=== PATIENT | female | born 1945 | race Caucasian/White ===

== ENCOUNTER 2023-12-22 13:48 | Emergency (ER) | payer MEDICARE, OTHER ==
[~2023-12-22] VITALS: Ht 157.5 cm; Wt 60.6 kg
[2023-12-22 14:15] VITALS: BP 124/79; PULSE 73; RESP 18; TEMP 98.4; O2SAT 96
[2023-12-22] MEDS ORDERED: LIDOCAINE 1% HCL (LOCAL ANESTH.) INJ 20ML MDV IJ ONE (14:30)
== END 2023-12-22 15:07 | disposition home or self-care (01) ==
LOC: ER 13:57
DX: S61.212A Laceration without foreign body of right middle finger without damage to nail, initial encounter (principal); E78.5 Hyperlipidemia, unspecified; Z85.9 Personal history of malignant neoplasm, unspecified; Z98.890 Other specified postprocedural states; W45.8XXA Other foreign body or object entering through skin, initial encounter; Y93.9 Activity, unspecified; Y92.89 Other specified places as the place of occurrence of the external cause; Y99.8 Other external cause status
CPT/HCPCS: 12002

== ENCOUNTER 2024-01-02 11:15 | Emergency (ER) | payer MEDICARE ==
[~2024-01-02] VITALS: Ht 157.5 cm; Wt 60.0 kg
[2024-01-02 12:19] VITALS: BP 152/63; PULSE 65; RESP 16; TEMP 97.8; O2SAT 95
== END 2024-01-02 12:57 | disposition home or self-care (01) ==
LOC: ER 11:15
DX: Z48.02 Encounter for removal of sutures (principal); E78.5 Hyperlipidemia, unspecified